=== PATIENT | male | born 1950 | race Caucasian/White ===

== ENCOUNTER → 2017-01-24 | Outpatient (REF) | payer MEDICARE, OTHER ==
[2017-01-24 16:25] LABS: ALBUMIN/GLOBULIN RATIO 1.29 (1.00-1.93); ALKALINE PHOSPHATASE 68 U/L (45-117); ALT/SGPT 34 U/L (12-78); ANION GAP 8 MEQ/L (8-16); AST/SGOT 14 U/L (15-37); BILIRUBIN,TOTAL 0.9 MG/DL (0.2-1.0); BLOOD UREA NITROGEN 19 MG/DL (7-18); CALCIUM LEVEL 8.9 MG/DL (8.8-10.2); CARBON DIOXIDE LEVEL 29 MEQ/L (21-32); CHLORIDE LEVEL 105 MEQ/L (98-107); CHOLESTEROL LEVEL 175 MG/DL (<200); CREATININE FOR GFR 1.08 MG/DL (0.70-1.30); GLOMERULAR FILTRATION RATE > 60.0 (>49); GLUCOSE, FASTING 170 MG/DL (80-110); SODIUM LEVEL 142 MEQ/L (136-145); TOTAL PROTEIN 7.1 GM/DL (6.4-8.2); TRIGLYCERIDES LEVEL 275 MG/DL (<150)
== END ==
LOC: M SFHCPLAZ 12:53
PROVIDERS: ATTEND Internal Medicine
DX: I10 Essential (primary) hypertension (principal); R16.2 Hepatomegaly with splenomegaly, not elsewhere classified; E11.9 Type 2 diabetes mellitus without complications; E78.00 Pure hypercholesterolemia, unspecified; E55.9 Vitamin D deficiency, unspecified

== ENCOUNTER → 2017-08-13 | Outpatient (CLI) | payer MEDICARE, OTHER ==
[2017-08-13 17:48] LABS: ALBUMIN 4.1 GM/DL (3.2-5.2); ALBUMIN/GLOBULIN RATIO 1.24 (1.00-1.93); ALKALINE PHOSPHATASE 67 U/L (45-117); ALT/SGPT 32 U/L (12-78); ANION GAP 6 MEQ/L (8-16); AST/SGOT 11 U/L (7-37); BILIRUBIN,TOTAL 1.2 MG/DL (0.2-1.0); BLOOD UREA NITROGEN 18 MG/DL (7-18); CALCIUM LEVEL 9.1 MG/DL (8.8-10.2); CARBON DIOXIDE LEVEL 31 MEQ/L (21-32); CHLORIDE LEVEL 103 MEQ/L (98-107); CHOLESTEROL LEVEL 188 MG/DL (<200); CREATININE FOR GFR 1.06 MG/DL (0.70-1.30); GLOMERULAR FILTRATION RATE > 60.0 (>49); GLUCOSE, FASTING 169 MG/DL (80-110); POTASSIUM SERUM 4.4 MEQ/L (3.5-5.1); SODIUM LEVEL 140 MEQ/L (136-145); TOTAL PROTEIN 7.4 GM/DL (6.4-8.2); TRIGLYCERIDES LEVEL 370 MG/DL (<150)
== END ==
LOC: M WUC 11:15
PROVIDERS: ATTEND Internal Medicine
DX: E11.9 Type 2 diabetes mellitus without complications (principal); I10 Essential (primary) hypertension

== ENCOUNTER 2017-10-14 08:23 | Day surgery (SDC) | payer MEDICARE, OTHER ==
[2017-10-14] MEDS: LR 1,000 ML IV (08:00)
[2017-10-14] MEDS ORDERED: PROPOFOL 200 MG/20 ML VIAL As Ordered ×3 (09:09→09:31)
[2017-10-14] MEDS ORDERED: LABETALOL HCL 100 MG/20 ML VIAL As Ordered (09:09)
== END 2017-10-14 10:35 | disposition home or self-care (01) ==
LOC: M OPP 08:23
DX: Z12.11 Encounter for screening for malignant neoplasm of colon (principal); K57.30 Diverticulosis of large intestine without perforation or abscess without bleeding; Z86.010 Personal history of colon polyps; I10 Essential (primary) hypertension; E78.00 Pure hypercholesterolemia, unspecified; K58.9 Irritable bowel syndrome, unspecified; M19.90 Unspecified osteoarthritis, unspecified site; F41.9 Anxiety disorder, unspecified; R06.83 Snoring; E11.9 Type 2 diabetes mellitus without complications; G47.30 Sleep apnea, unspecified; N40.0 Benign prostatic hyperplasia without lower urinary tract symptoms; Z79.84 Long term (current) use of oral hypoglycemic drugs; Z79.899 Other long term (current) drug therapy; Z88.0 Allergy status to penicillin; Z88.8 Allergy status to other drugs, medicaments and biological substances; Z99.89 Dependence on other enabling machines and devices
CPT/HCPCS: G0105

== ENCOUNTER → 2017-11-23 | Outpatient (REF) | payer MEDICARE, OTHER ==
[2017-11-23 16:11] LABS: INFLUENZA A AMPLIFICATION NEGATIVE (NEGATIVE); INFLUENZA B AMPLIFICATION NEGATIVE (NEGATIVE)
== END ==
LOC: M LAB REF 15:23
DX: J11.1 Influenza due to unidentified influenza virus with other respiratory manifestations (principal)
CPT/HCPCS: 87502

== ENCOUNTER → 2018-02-24 | Outpatient (CLI) | payer MEDICARE, OTHER ==
[2018-02-24 18:56] LABS: ALBUMIN 3.9 GM/DL (3.2-5.2); ALBUMIN/GLOBULIN RATIO 1.34 (1.00-1.93); ALKALINE PHOSPHATASE 61 U/L (45-117); ALT/SGPT 26 U/L (12-78); ANION GAP 5 MEQ/L (8-16); AST/SGOT 11 U/L (7-37); BILIRUBIN,TOTAL 0.8 MG/DL (0.2-1.0); BLOOD UREA NITROGEN 15 MG/DL (7-18); CALCIUM LEVEL 8.6 MG/DL (8.8-10.2); CARBON DIOXIDE LEVEL 30 MEQ/L (21-32); CHLORIDE LEVEL 107 MEQ/L (98-107); CHOLESTEROL LEVEL 143 MG/DL (<200); CHOLESTEROL RISK RATIO 4.468 (<5); CREATININE FOR GFR 1.01 MG/DL (0.70-1.30); GLOMERULAR FILTRATION RATE > 60.0 (>49); GLUCOSE, FASTING 173 MG/DL (70-100); HDL CHOLESTEROL 32 MG/DL (>40); LDL CHOLESTEROL 57.4 MG/DL (<100); MAGNESIUM LEVEL 2.1 MG/DL (1.8-2.4); NON-HDL-C 111 MG/DL; POTASSIUM SERUM 3.9 MEQ/L (3.5-5.1); SODIUM LEVEL 142 MEQ/L (136-145); TOTAL PROTEIN 6.8 GM/DL (6.4-8.2); TRIGLYCERIDES LEVEL 268 MG/DL (<150)
[2018-02-24 19:02] LABS: MALB URINE SIEMENS 27.3 MG/L; MAU/CREAT RATIO 25.7 MCG/MG (0.0-30.0)
[2018-02-24 19:20] LABS: ESTIMATED AVERAGE GLUCOSE 186 MG/DL (60-110); HEMOGLOBIN A1c 8.1 %
== END ==
LOC: M WUC 11:52
DX: I10 Essential (primary) hypertension (principal); E11.9 Type 2 diabetes mellitus without complications; E78.00 Pure hypercholesterolemia, unspecified; Z23 Encounter for immunization
CPT/HCPCS: 83735

== ENCOUNTER → 2018-04-03 | Outpatient (REF) | payer MEDICARE, OTHER ==
[2018-04-03 16:13] LABS: BASO % 0.1 % (0.0-1.0); HEMATOCRIT 42.8 % (42.0-52.0); HEMOGLOBIN 14.6 g/dl (13.5-17.5); IMMATURE GRANULOCYTE % 0.6 % (0-3.0); LYMPH # 1.3 10^3/uL (1.5-4.5); LYMPH % 8.7 % (24.0-44.0); MEAN CORPUSCULAR HEMOGLOBIN 30.2 pg (27.0-33.0); MEAN CORPUSCULAR HGB CONC 34.1 g/dl (32.0-36.5); MEAN CORPUSCULAR VOLUME 88.6 fl (80.0-96.0); MONO # 0.3 10^3/uL (0.0-0.8); MONO % 2.3 % (0.0-5.0); NEUTROPHILS # 13.3 10^3/uL (1.8-7.7); NEUTROPHILS % 88.3 % (36.0-66.0); PLATELET COUNT, AUTOMATED 230 10^3/uL (150-450); RED BLOOD COUNT 4.83 10^6/uL (4.30-6.10); RED CELL DISTRIBUTION WIDTH 12.7 % (11.5-14.5); WHITE BLOOD COUNT 15.1 10^3/uL (4.0-10.0)
[2018-04-03 16:20] LABS: APPEARANCE, URINE CLEAR (CLEAR); BACTERIA, URINE AUTO NEGATIVE (NEGATIVE); BILIRUBIN, URINE AUTO NEGATIVE (NEGATIVE); BLOOD, URINE BLOOD NEGATIVE (NEGATIVE); COLOR, URINE YELLOW (YELLOW); GLUCOSE, URINE (UA) AUTO 3+ mg/dL (NEGATIVE); KETONE, URINE AUTO NEGATIVE (NEGATIVE); LEUKOCYTE ESTERASE, URINE AUTO NEGATIVE (NEGATIVE); MUCUS, URINE SMALL (NEGATIVE); NITRITE, URINE AUTO NEGATIVE (NEGATIVE); PROTEIN, URINE AUTO NEGATIVE (NEGATIVE); RBC, URINE AUTO 3 /HPF (0-3); SPECIFIC GRAVITY URINE AUTO 1.021 (1.002-1.035); SQUAMOUS EPITHELIAL CELL UR AU 0 /HPF (0-6); UROBILINOGEN, URINE AUTO 0.2 mg/dL (0.0-2.0); WBC, URINE AUTO 0 /HPF (0-3)
[2018-04-03 16:24] LABS: INR 1.04; PROTHROMBIN TIME 13.7 SECONDS (12.1-14.4)
[2018-04-03 16:32] LABS: ALBUMIN 3.9 GM/DL (3.2-5.2); ALBUMIN/GLOBULIN RATIO 1.15 (1.00-1.93); ALKALINE PHOSPHATASE 76 U/L (45-117); ALT/SGPT 33 U/L (12-78); ANION GAP 8 MEQ/L (8-16); AST/SGOT 9 U/L (7-37); BILIRUBIN,TOTAL 0.8 MG/DL (0.2-1.0); BLOOD UREA NITROGEN 23 MG/DL (7-18); CALCIUM LEVEL 8.8 MG/DL (8.8-10.2); CARBON DIOXIDE LEVEL 29 MEQ/L (21-32); CHLORIDE LEVEL 105 MEQ/L (98-107); CREATININE FOR GFR 1.16 MG/DL (0.70-1.30); GLOMERULAR FILTRATION RATE > 60.0 (>49); GLUCOSE, FASTING 282 MG/DL (70-100); POTASSIUM SERUM 4.1 MEQ/L (3.5-5.1); SODIUM LEVEL 142 MEQ/L (136-145); TOTAL PROTEIN 7.3 GM/DL (6.4-8.2)
== END ==
LOC: M SFHCPLAZ 13:46
DX: R23.3 Spontaneous ecchymoses (principal)
CPT/HCPCS: 80053

== ENCOUNTER → 2018-04-07 | Outpatient (REF) | payer MEDICARE, OTHER ==
[2018-04-07 10:44] LABS: BASO % 0.3 % (0.0-1.0); EOS # 0.2 10^3/uL (0.0-0.50); EOS % 2.7 % (0.0-3.0); HEMATOCRIT 42.4 % (42.0-52.0); HEMOGLOBIN 14.4 g/dl (13.5-17.5); IMMATURE GRANULOCYTE % 0.3 % (0-3.0); LYMPH % 21.7 % (24.0-44.0); MEAN CORPUSCULAR HEMOGLOBIN 30.3 pg (27.0-33.0); MEAN CORPUSCULAR VOLUME 89.3 fl (80.0-96.0); MONO # 0.5 10^3/uL (0.0-0.8); MONO % 5.1 % (0.0-5.0); NEUTROPHILS # 6.3 10^3/uL (1.8-7.7); NEUTROPHILS % 69.9 % (36.0-66.0); PLATELET COUNT, AUTOMATED 203 10^3/uL (150-450); RED BLOOD COUNT 4.75 10^6/uL (4.30-6.10); RED CELL DISTRIBUTION WIDTH 12.8 % (11.5-14.5)
== END ==
LOC: M SFHCPLAZ 09:06
DX: R23.3 Spontaneous ecchymoses (principal)
CPT/HCPCS: 85025

== ENCOUNTER → 2018-08-31 | Outpatient (CLI) | payer MEDICARE, OTHER ==
[2018-08-31 14:08] LABS: BASO # 0.1 10^3/uL (0.0-0.2); BASO % 0.8 % (0.0-1.0); EOS # 0.2 10^3/uL (0.0-0.50); EOS % 2.5 % (0.0-3.0); HEMATOCRIT 41.3 % (42.0-52.0); HEMOGLOBIN 14.1 g/dl (13.5-17.5); IMMATURE GRANULOCYTE % 0.2 % (0-3.0); LYMPH # 2.1 10^3/uL (1.5-4.5); LYMPH % 23.2 % (24.0-44.0); MEAN CORPUSCULAR HEMOGLOBIN 30.1 pg (27.0-33.0); MEAN CORPUSCULAR HGB CONC 34.1 g/dl (32.0-36.5); MEAN CORPUSCULAR VOLUME 88.2 fl (80.0-96.0); MONO # 0.5 10^3/uL (0.0-0.8); MONO % 5.6 % (0.0-5.0); NEUTROPHILS # 6.2 10^3/uL (1.8-7.7); NEUTROPHILS % 67.7 % (36.0-66.0); PLATELET COUNT, AUTOMATED 253 10^3/uL (150-450); RED BLOOD COUNT 4.68 10^6/uL (4.30-6.10); RED CELL DISTRIBUTION WIDTH 12.4 % (11.5-14.5); WHITE BLOOD COUNT 9.2 10^3/uL (4.0-10.0)
== END ==
LOC: M WUC 11:06
DX: R23.3 Spontaneous ecchymoses (principal)
CPT/HCPCS: 85025

== ENCOUNTER → 2018-09-03 | Outpatient (CLI) | payer MEDICARE, OTHER ==
[2018-09-03 09:57] LABS: ALBUMIN 3.9 GM/DL (3.2-5.2); ALKALINE PHOSPHATASE 64 U/L (45-117); ALT/SGPT 25 U/L (12-78); ANION GAP 7 MEQ/L (8-16); AST/SGOT 10 U/L (7-37); BILIRUBIN,TOTAL 0.6 MG/DL (0.2-1.0); BLOOD UREA NITROGEN 26 MG/DL (7-18); CARBON DIOXIDE LEVEL 29 MEQ/L (21-32); CHLORIDE LEVEL 105 MEQ/L (98-107); CHOLESTEROL LEVEL 114 MG/DL (<200); CREATININE FOR GFR 1.08 MG/DL (0.70-1.30); GLOMERULAR FILTRATION RATE > 60.0 (>49); GLUCOSE, FASTING 169 MG/DL (70-100); HDL CHOLESTEROL 38 MG/DL (>40); LDL CHOLESTEROL 55 MG/DL (<100); NON-HDL-C 76 MG/DL; POTASSIUM SERUM 4.1 MEQ/L (3.5-5.1); SODIUM LEVEL 141 MEQ/L (136-145); TOTAL PROTEIN 6.9 GM/DL (6.4-8.2); TRIGLYCERIDES LEVEL 103 MG/DL (<150)
[2018-09-03 10:04] LABS: ESTIMATED AVERAGE GLUCOSE 154 MG/DL (60-110)
== END ==
LOC: M WUC 08:10
DX: E11.9 Type 2 diabetes mellitus without complications (principal); E78.00 Pure hypercholesterolemia, unspecified
CPT/HCPCS: 80053

== ENCOUNTER → 2018-11-27 | Outpatient (CLI) | payer MEDICARE, OTHER ==
[~2018-11-27] MED LIST: AMLO5TAB6 PO; CARV25TA PO; GARL10004 PO; GREE315C PO; LISI10TA2 PO; METF750T PO; OMEG100011 PO; OSTETAB4 PO; POTA20TA6 PO; TAMSULOSIN PO; TRIA1CR EXT; VITA200016 PO; VITATAB11 PO
--- NOTE | 2018-11-27 11:26 | REP ---
MRI right shoulder without contrast: History: Synovitis and tenosynovitis. Comparison right shoulder radiographs September 14, 2018. Technique: Axial, oblique coronal and oblique sagittal imaging planes are utilized. T1 and T2-weighted scans were obtained with and without fat saturation in the usual fashion. MRI findings: Cortical and medullary bone signal intensity are normal. Glenohumeral and acromioclavicular joint alignment is normal. There is some osteoarthritic hypertrophy at the AC joint superiorly and inferiorly. There is subacromial subdeltoid bursal fluid which is somewhat heterogeneous. This is moderate in size. There is also a moderate size inferolateral spur on the edge of the acromion process. Subcortical cyst formation is seen in proximal humerus. There is a small glenohumeral joint effusion and there is joint fluid and irregular synovial hypertrophy anterior to the biceps tendon and anterolateral to the humeral head consistent with bursitis and/or synovitis. The subscapularis and infraspinatus tendons appear intact. The biceps tendon is in the bony bicipital groove. There is some increased signal intensity in its genu consistent with biceps tendinosis. Axial T2-weighted scans show evidence of a nondisplaced anterior labral tear. No para labral cyst is seen. No loose body is appreciated. There is supraspinatus tendinosis as well. No full-thickness cuff tear is seen. Impression: AC joint and acromion process spurring. Supraspinatus and biceps tendinosis. Some subscapularis tendinosis is also noted. There is a nondisplaced tear in the anterior labral cartilage. Synovial hypertrophy is seen in the subdeltoid bursa and probably involving the synovia in the biceps tendon and glenohumeral articulation as well. There is a moderate subdeltoid bursal effusion. Electronically Signed by Alan Williamson MD 11/27/2018 02:41 P
== END ==
LOC: M RAD 08:42
PROVIDERS: ATTEND Orthopaedic Surgery Sports Medicine
DX: M65.811 Other synovitis and tenosynovitis, right shoulder (principal); M25.711 Osteophyte, right shoulder; M67.28 Synovial hypertrophy, not elsewhere classified, other site; S43.431A Superior glenoid labrum lesion of right shoulder, initial encounter; Y99.9 Unspecified external cause status; Y92.9 Unspecified place or not applicable; Y93.9 Activity, unspecified; X58.XXXA Exposure to other specified factors, initial encounter

== ENCOUNTER → 2019-05-03 | Outpatient (CLI) | payer MEDICARE, OTHER ==
[~2019-05-03] MED LIST changes: +LISI10TA15 PO; -LISI10TA2 PO; +TRIA0.1C60 EXT; -TRIA1CR EXT
[2019-05-03 17:29] LABS: ALBUMIN 3.8 GM/DL (3.2-5.2); ALT/SGPT 27 U/L (12-78); BILIRUBIN,TOTAL 0.6 MG/DL (0.2-1.0); BLOOD UREA NITROGEN 19 MG/DL (7-18); CALCIUM LEVEL 9.2 MG/DL (8.8-10.2); CARBON DIOXIDE LEVEL 29 MEQ/L (21-32); CHLORIDE LEVEL 108 MEQ/L (98-107); CHOLESTEROL LEVEL 110 MG/DL (<200); CHOLESTEROL RISK RATIO 2.972 (<5); CREATININE FOR GFR 1.08 MG/DL (0.70-1.30); GLOMERULAR FILTRATION RATE > 60.0 (>49); GLUCOSE, FASTING 162 MG/DL (70-100); HDL CHOLESTEROL 37 MG/DL (>40); LDL CHOLESTEROL 35 MG/DL (<100); MAGNESIUM LEVEL 2.1 MG/DL (1.8-2.4); NON-HDL-C 73 MG/DL; POTASSIUM SERUM 4.2 MEQ/L (3.5-5.1); SODIUM LEVEL 143 MEQ/L (136-145); TOTAL PROTEIN 6.8 GM/DL (6.4-8.2); TRIGLYCERIDES LEVEL 189 MG/DL (<150)
[2019-05-03 17:42] LABS: MALB URINE SIEMENS 18.5 MG/L; MAU/CREAT RATIO 10.6 MCG/MG (0.0-30.0)
[2019-05-03 18:15] LABS: HEMOGLOBIN A1c 8.1 %
== END ==
LOC: M WUC 11:34
PROVIDERS: ATTEND Internal Medicine
DX: I10 Essential (primary) hypertension (principal); E11.9 Type 2 diabetes mellitus without complications; E78.00 Pure hypercholesterolemia, unspecified

== ENCOUNTER → 2019-10-05 | Outpatient (CLI) | payer MEDICARE, OTHER ==
[~2019-10-05] MED LIST changes: -METF750T PO; +METF750T36 PO
[2019-10-05 18:00] LABS: ALT/SGPT 25 U/L (12-78); BILIRUBIN,TOTAL 0.9 MG/DL (0.2-1.0); BLOOD UREA NITROGEN 16 MG/DL (7-18); CALCIUM LEVEL 9.1 MG/DL (8.8-10.2); CARBON DIOXIDE LEVEL 28 MEQ/L (21-32); CHLORIDE LEVEL 108 MEQ/L (98-107); CREATININE FOR GFR 1.01 MG/DL (0.70-1.30); GLOMERULAR FILTRATION RATE > 60.0 (>49); GLUCOSE, FASTING 149 MG/DL (70-100); MAGNESIUM LEVEL 2.4 MG/DL (1.8-2.4); SODIUM LEVEL 143 MEQ/L (136-145); TOTAL PROTEIN 6.6 GM/DL (6.4-8.2)
[2019-10-05 18:38] LABS: HEMOGLOBIN A1c 7.1 %
== END ==
LOC: M WUC 11:15
PROVIDERS: ATTEND Internal Medicine
DX: E11.9 Type 2 diabetes mellitus without complications (principal); I10 Essential (primary) hypertension

== ENCOUNTER → 2020-04-10 | Outpatient (CLI) | payer MEDICARE, OTHER ==
[~2020-04-10] MED LIST changes: +AMLO1TAB24 PO; -AMLO5TAB6 PO
[2020-04-10 13:40] LABS: HEMATOCRIT 45.2 % (42.0-52.0); HEMOGLOBIN 15.1 g/dl (13.5-17.5); MEAN CORPUSCULAR HEMOGLOBIN 29.6 pg (27.0-33.0); MEAN CORPUSCULAR HGB CONC 33.4 g/dl (32.0-36.5); MEAN CORPUSCULAR VOLUME 88.6 fl (80.0-96.0); PLATELET COUNT, AUTOMATED 193 10^3/uL (150-450); WHITE BLOOD COUNT 7.5 10^3/uL (4.0-10.0)
[2020-04-10 14:07] LABS: ALT/SGPT 24 U/L (12-78); BLOOD UREA NITROGEN 21 MG/DL (7-18); CALCIUM LEVEL 8.8 MG/DL (8.8-10.2); CARBON DIOXIDE LEVEL 25 MEQ/L (21-32); CHLORIDE LEVEL 109 MEQ/L (98-107); CHOLESTEROL LEVEL 123 MG/DL (<200); CHOLESTEROL RISK RATIO 3.617 (<5); CREATININE FOR GFR 1.03 MG/DL (0.70-1.30); GLOMERULAR FILTRATION RATE > 60.0 (>49); GLUCOSE, FASTING 132 MG/DL (70-100); HDL CHOLESTEROL 34 MG/DL (>40); LDL CHOLESTEROL 47 MG/DL (<100); MAGNESIUM LEVEL 2.3 MG/DL (1.8-2.4); NON-HDL-C 89 MG/DL; POTASSIUM SERUM 3.8 MEQ/L (3.5-5.1); SODIUM LEVEL 141 MEQ/L (136-145); TRIGLYCERIDES LEVEL 212 MG/DL (<150)
[2020-04-10 16:10] LABS: HEMOGLOBIN A1c 7.1 %
== END ==
LOC: M WUC 11:56
PROVIDERS: ATTEND Internal Medicine
DX: E11.3293 Type 2 diabetes mellitus with mild nonproliferative diabetic retinopathy without macular edema, bilateral (principal); E78.00 Pure hypercholesterolemia, unspecified; G47.30 Sleep apnea, unspecified; I10 Essential (primary) hypertension; Z12.5 Encounter for screening for malignant neoplasm of prostate
CPT/HCPCS: 36415; 80053; 80061; 83036; 83735; 85027; G0103

== ENCOUNTER → 2020-04-28 | Outpatient (REF) | payer MEDICARE, OTHER | LOC: M SMT 14:01 | PROVIDERS: ATTEND Nurse Practitioner Family | DX: R97.20 Elevated prostate specific antigen [PSA] (principal); N39.0 Urinary tract infection, site not specified ==

== ENCOUNTER → 2020-05-09 | Outpatient (REF) | payer MEDICARE, OTHER ==
--- NOTE | 2020-06-26 10:43 | REPPI ---
TRANRECTAL PROSTATE SONOGRAPHY HISTORY: Elevated PSA. NOTE: This report was delayed due to a protracted episode of network disruption experienced by this facility. FINDINGS: Glandular dimensions are 5.0 x 3.5 x 5.1 cm for a calculated glandular volume of 46 mL. Heterogeneous enlargement of the central gland is observed with calcifications and cysts. Transrectal prostate sonographic guidance is provided to Dr. Estrada who performed transrectal ultrasound-guided prostate needle biopsy procedure. NAOMI
== END ==
LOC: M SMT 12:18
PROVIDERS: ATTEND Urology
DX: R97.20 Elevated prostate specific antigen [PSA] (principal)
CPT/HCPCS: 55700; 76872; 76942; G0416

== ENCOUNTER → 2020-09-19 | Outpatient (CLI) | payer MEDICARE, OTHER ==
[2020-09-19 15:18] LABS: APPEARANCE, URINE CLOUDY (CLEAR); BACTERIA, URINE AUTO 1+ (NEGATIVE); BILIRUBIN, URINE AUTO NEGATIVE (NEGATIVE); BLOOD, URINE BLOOD 1+ (NEGATIVE); COLOR, URINE YELLOW (YELLOW); GLUCOSE, URINE (UA) AUTO 3+ mg/dL (NEGATIVE); KETONE, URINE AUTO NEGATIVE (NEGATIVE); LEUKOCYTE ESTERASE, URINE AUTO 3+ (NEGATIVE); NITRITE, URINE AUTO POSITIVE (NEGATIVE); PROTEIN, URINE AUTO 1+ mg/dL (NEGATIVE); RBC, URINE AUTO 22 /HPF (0-3); SPECIFIC GRAVITY URINE AUTO 1.036 (1.002-1.035); SQUAMOUS EPITHELIAL CELL UR AU 0 /HPF (0-6); UROBILINOGEN, URINE AUTO 0.2 mg/dL (0.0-2.0); WBC, URINE AUTO TNTC /HPF (0-3)
== END ==
LOC: M LAB 14:23
PROVIDERS: ATTEND Urology
DX: R39.15 Urgency of urination (principal)

== ENCOUNTER → 2020-09-25 | Outpatient (CLI) | payer MEDICARE, OTHER | LOC: M LAB 10:49 | PROVIDERS: ATTEND Urology | DX: C61 Malignant neoplasm of prostate (principal) ==

== ENCOUNTER → 2020-10-12 | Outpatient (CLI) | payer MEDICARE, OTHER ==
[2020-10-12 14:02] LABS: MALB URINE SIEMENS 58.8 MG/L; MAU/CREAT RATIO 40.5 MCG/MG (0.0-30.0)
[2020-10-12 14:03] LABS: ALBUMIN 3.8 GM/DL (3.2-5.2); ALT/SGPT 33 U/L (12-78); BILIRUBIN,TOTAL 0.5 MG/DL (0.2-1.0); BLOOD UREA NITROGEN 23 MG/DL (7-18); CARBON DIOXIDE LEVEL 26 MEQ/L (21-32); CHLORIDE LEVEL 106 MEQ/L (98-107); CHOLESTEROL LEVEL 125 MG/DL (<200); CHOLESTEROL RISK RATIO 3.048 (<5); CREATININE FOR GFR 0.95 MG/DL (0.70-1.30); GLOMERULAR FILTRATION RATE > 60.0 (>49); GLUCOSE, FASTING 170 MG/DL (70-100); HDL CHOLESTEROL 41 MG/DL (>40); LDL CHOLESTEROL 50 MG/DL (<100); NON-HDL-C 84 MG/DL; POTASSIUM SERUM 4.1 MEQ/L (3.5-5.1); SODIUM LEVEL 138 MEQ/L (136-145); TOTAL PROTEIN 6.9 GM/DL (6.4-8.2); TRIGLYCERIDES LEVEL 172 MG/DL (<150)
[2020-10-12 14:13] LABS: HEMOGLOBIN A1c 7.3 %
== END ==
LOC: M LAB 11:45
PROVIDERS: ATTEND Internal Medicine
DX: E11.3219 Type 2 diabetes mellitus with mild nonproliferative diabetic retinopathy with macular edema, unspecified eye (principal); Z79.899 Other long term (current) drug therapy

== ENCOUNTER → 2020-10-26 | Outpatient (CLI) | payer MEDICARE, OTHER ==
[2020-10-26 16:36] LABS: APPEARANCE, URINE MANUAL CLOUDY (CLEAR); COLOR, URINE MANUAL AMBER (YELLOW); GLUCOSE, URINE (UA) MANUAL OBSCURED mg/dL (NEGATIVE); PROTEIN, URINE MANUAL OBSCURED mg/dL (NEGATIVE); SPECIFIC GRAVITY,URINE MANUAL 1.025 (1.002-1.035)
[2020-10-26 16:37] LABS: BACTERIA, URINE LARGE AMOUNT; BILIRUBIN, URINE MANUAL OBSCURED (NEGATIVE); BLOOD URINE MANUAL POSITIVE (NEGATIVE); KETONE, URINE MANUAL OBSCURED mg/dL (NEGATIVE); LEUKOCYTE ESTERASE, URINE MAN OBSCURED (NEGATIVE); NITRITE, URINE MANUAL OBSCURED (NEGATIVE); RBC, URINE NONE SEEN /hpf (0-3); SQUAMOUS EPITHELIAL CELL URINE NONE SEEN /hpf (SMALL AMT); UROBILINOGEN, URINE MANUAL OBSCURED mg/dl (NORMAL); WBC, URINE 15-20 /hpf (0-3)
[2020-10-26 16:38] LABS: HYALINE CAST, URINE NONE SEEN /lpf (0-1); YEAST, URINE LARGE AMOUNT
== END ==
LOC: M LAB 15:41
PROVIDERS: ATTEND Urology
DX: R39.9 Unspecified symptoms and signs involving the genitourinary system (principal)

== ENCOUNTER → 2020-11-06 | Outpatient (CLI) | payer MEDICARE, OTHER ==
[2020-11-06 14:37] LABS: APPEARANCE, URINE CLOUDY (CLEAR); BACTERIA, URINE AUTO NEGATIVE (NEGATIVE); BILIRUBIN, URINE AUTO NEGATIVE (NEGATIVE); BLOOD, URINE BLOOD NEGATIVE (NEGATIVE); COLOR, URINE YELLOW (YELLOW); GLUCOSE, URINE (UA) AUTO 3+ mg/dL (NEGATIVE); KETONE, URINE AUTO NEGATIVE (NEGATIVE); LEUKOCYTE ESTERASE, URINE AUTO 3+ (NEGATIVE); MUCUS, URINE SMALL (NEGATIVE); NITRITE, URINE AUTO NEGATIVE (NEGATIVE); PROTEIN, URINE AUTO 1+ mg/dL (NEGATIVE); RBC, URINE AUTO 170 /HPF (0-3); SPECIFIC GRAVITY URINE AUTO 1.031 (1.002-1.035); SQUAMOUS EPITHELIAL CELL UR AU 1 /HPF (0-6); UROBILINOGEN, URINE AUTO 0.2 mg/dL (0.0-2.0); WBC, URINE AUTO 151 /HPF (0-3)
== END ==
LOC: M LAB 13:50
PROVIDERS: ATTEND Urology
DX: R39.9 Unspecified symptoms and signs involving the genitourinary system (principal)

== ENCOUNTER → 2020-11-22 | Outpatient (CLI) | payer MEDICARE, OTHER ==
[~2020-11-22] MED LIST changes: +ASPI-161 PO; +BACITAB PO; +D200CAP2 PO; +DICL1GEL3 TOP; +DICY1CAP8 PO; +FARX1TAB5 PO; +GABA-282 PO; +GASTROGRAFIN SOLUTION 30ML (Q9963) As Ordered ONE; +ISOVUE-370 76% 100ML VIAL As Ordered ONE; +JANU100T PO; +LISI20TA35 PO; +ROSU5TAB5 PO
--- NOTE | 2020-11-22 21:05 | REP ---
INDICATION: LOWER ABD PAIN. COMPARISON: 04/28/2015 CT TECHNIQUE: Oral Gastrografin mixture per our bowel contrast protocol followed by bolus of 75 cc Isovue 370 scanning through the abdomen pelvis with coronal and sagittal reconstructions. FINDINGS: CT abdomen: Lung bases are clear there is eventration of the right diaphragm and some compressive atelectatic change right middle lobe adjacent to that but unchanged. Heart shows some left ventricular configuration. There is no pericardial thickening or effusion and no hiatal hernia. Lower thoracic and the abdominal aorta without aneurysm or dissection. Mild hepatomegaly and fatty liver change with vertical diameter the liver 20.3 cm midclavicular line. No focal hepatic mass, intrahepatic biliary dilatation or adjacent ascites. There is colonic interposition between the liver and the dome of the diaphragm as well as anterior abdominal wall. This is as seen on the previous study. No splenomegaly or focal splenic lesion. Gallbladder partially contracted some retained food in the stomach along with the oral contrast. Pancreas shows no mass, ductal dilatation or inflammatory change. No peripancreatic adenopathy or fluid collections. Adrenal glands are grossly intact. Kidneys show function without obstruction. There are extrarenal pelves. I see no stone or hydronephrosis. Subcortical cyst lateral aspect interpolar region about 5 mm on the left. No renal, ureteral or bladder stone. Ureters show mild prominence to the bladder. Small bowel loops in the upper abdomen and mid abdomen were unremarkable. The abdominal portion of the colon was unremarkable. No inflammatory change about the cecum. The bone windows show lumbar and lower thoracic spine with some degenerative changes and facet arthropathy in the lower lumbar spine without destructive lesion or fracture. Visualized ribs grossly intact. No perforation or free air in the abdomen or pelvis. No ascites. CT pelvis: Bone windows show facet arthropathy at L5-S1 some minor sclerosis at the superior aspect of the right SI joint but the sacral ala, iliac wings and hips show no fracture or destructive lesion. There are some minor degenerative changes of the hips. Distal left colon and sigmoid show a few scattered diverticula without diverticulitis or colitis. Rectum grossly intact. Distal ureters without stone but are mildly prominent. There is thickening of the bladder wall diffusely, not present in the previous study. Prostate is indenting the bladder base. No bladder wall mass or bladder stones/debris. No pelvic lymphadenopathy or free fluid. No ventral or inguinal hernia nor pathologic sized inguinal adenopathy. No umbilical hernia. IMPRESSION: 1. Mild hydroureter and extrarenal pelves with diffuse bladder wall thickening the bladder at adequately distended. This may reflect muscular hypertrophy from bladder outlet obstruction. No bladder stone, wall mass, layering debris or perivesical fluid/edema/adenopathy. 2. Hepatomegaly with some probable fatty infiltration the liver. There is colonic interposition between the liver, right abdominal wall and dome of the diaphragm as before and representing anatomic variation. Spleen unremarkable. Adrenal glands gallbladder and pancreas without acute finding. No hiatal hernia. 3. No renal stone or mass. 5 mm cyst laterally in the left kidney. 4. Scattered diverticula left colon and sigmoid without diverticulitis or colitis. <Electronically signed by Zia Mckeon > 11/22/20 [id number]
== END ==
LOC: M RAD 16:43
PROVIDERS: ATTEND Internal Medicine
DX: R10.30 Lower abdominal pain, unspecified (principal); R16.0 Hepatomegaly, not elsewhere classified; K76.0 Fatty (change of) liver, not elsewhere classified; N28.1 Cyst of kidney, acquired; K57.30 Diverticulosis of large intestine without perforation or abscess without bleeding
CPT/HCPCS: 74177; Q9963; Q9967

== ENCOUNTER 2020-11-27 18:07 | Day surgery (SDC) | payer MEDICARE, OTHER ==
[~2020-11-27] VITALS: Ht 170.2 cm; Wt 76.3 kg
[~2020-11-27 18:07] MED LIST changes: -ASPI-161 PO; -BACITAB PO; -D200CAP2 PO; -DICL1GEL3 TOP; -DICY1CAP8 PO; -FARX1TAB5 PO; -GABA-282 PO; -GASTROGRAFIN SOLUTION 30ML (Q9963) As Ordered ONE; -ISOVUE-370 76% 100ML VIAL As Ordered ONE; -JANU100T PO; -LISI20TA35 PO; -ROSU5TAB5 PO
[2020-11-27 21:29] LABS: BASO # 0.1 10^3/uL (0.0-0.2); BASO % 0.5 % (0.0-1.0); EOS # 0.1 10^3/uL (0.0-0.5); EOS % 1.1 % (0.0-3.0); HEMATOCRIT 50.1 % (42.0-52.0); HEMOGLOBIN 16.4 g/dl (13.5-17.5); LYMPH # 3.4 10^3/uL (1.5-5.0); LYMPH % 26.8 % (24.0-44.0); MEAN CORPUSCULAR HEMOGLOBIN 27.8 pg (27.0-33.0); MEAN CORPUSCULAR HGB CONC 32.7 g/dl (32.0-36.5); MEAN CORPUSCULAR VOLUME 84.9 fl (80.0-96.0); MONO # 0.6 10^3/uL (0.0-0.8); MONO % 4.5 % (2.0-8.0); NEUTROPHILS # 8.4 10^3/uL (1.5-8.5); NEUTROPHILS % 66.8 % (36.0-66.0); PLATELET COUNT, AUTOMATED 325 10^3/uL (150-450); WHITE BLOOD COUNT 12.5 10^3/uL (4.0-10.0)
[2020-11-27 21:39] LABS: PROTHROMBIN TIME 13.4 SECONDS (12.5-14.3)
[2020-11-27 21:40] LABS: PARTIAL THROMBOPLASTIN TIME 29.4 SECONDS (24.2-38.5)
[2020-11-27] MEDS: MORPHINE 2 MG/ML 1ML VIAL (J2270) IV PRN ×3 (22:05→22:45)
[2020-11-27 22:06] LABS: ALBUMIN 4.3 GM/DL (3.2-5.2); ALT/SGPT 76 U/L (12-78); BILIRUBIN,DIRECT 0.2 MG/DL (0.0-0.2); BILIRUBIN,TOTAL 0.7 MG/DL (0.2-1.0); BLOOD UREA NITROGEN 9 MG/DL (7-18); CALCIUM LEVEL 9.2 MG/DL (8.8-10.2); CARBON DIOXIDE LEVEL 25 MEQ/L (21-32); CHLORIDE LEVEL 107 MEQ/L (98-107); CREATININE FOR GFR 1.09 MG/DL (0.70-1.30); GLOMERULAR FILTRATION RATE > 60.0 (>49); GLUCOSE, FASTING 149 MG/DL (70-100); LIPASE 85 U/L (73-393); POTASSIUM SERUM 3.6 MEQ/L (3.5-5.1); SODIUM LEVEL 142 MEQ/L (136-145); TOTAL PROTEIN 7.9 GM/DL (6.4-8.2)
[2020-11-27] MEDS ORDERED: ISOVUE-370 76% 100ML VIAL As Ordered ONE (22:10)
--- NOTE | 2020-11-27 22:53 | REPVR ---
PROCEDURE INFORMATION: Exam: CT Abdomen And Pelvis With Contrast Exam date and time: 11/27/2020 10:30 PM Age: 70 years old Clinical indication: Abdominal pain; Localized; Right lower quadrant (rlq); Additional info: Right lower quadrant pain TECHNIQUE: Imaging protocol: Computed tomography of the abdomen and pelvis with contrast. Radiation optimization: All CT scans at this facility use at least one of these dose optimization techniques: automated exposure control; mA and/or kV adjustment per patient size (includes targeted exams where dose is matched to clinical indication); or iterative reconstruction. Contrast material: ISOVUE 370; Contrast volume: 100 ml; Contrast route: INTRAVENOUS (IV); COMPARISON: CT ABD/PEL W/IV ORAL CONTRAS 11/22/2020 6:40 PM FINDINGS: Lungs: No suspicious mass or airspace process in the visualized lung bases. Liver: Liver appears normal with no focal abnormality. Gallbladder and bile ducts: Gallbladder is contracted and not well evaluated. Pancreas: Pancreas appears normal. No focal mass or peripancreatic inflammation. Spleen: Spleen appears homogeneous without focal mass. Adrenal glands: Adrenal glands are normal in appearance. Kidneys and ureters: Kidneys demonstrate no stone or focal parenchymal abnormality. Mild bilateral hydroureteronephrosis without ureter stone. Stomach and bowel: No concerning asymmetry or abnormality at the GE junction. No evidence of small bowel obstruction. Terminal ileum has normal appearance. Diverticular changes are present within the colon without inflammation. Appendix: Normal caliber appendix is identified, with no adjacent inflammation. Intraperitoneal space: No pneumoperitoneum. Vasculature: No aortic aneurysm. Main portal and splenic veins enhance normally. Lymph nodes: No enlarged lymph nodes. Urinary bladder: Bladder is somewhat thick-walled with perivesicular stranding and prominent mucosal enhancement. No nodule or mass. Reproductive: No overt enlargement of the prostate gland. Bones/joints: Bony structures show no acute fracture or destructive process. Soft tissues: No effacement of normal fat planes in the ischiorectal fossa. No concerning focal abnormality of the extra-abdominal and pelvic soft tissues. IMPRESSION: 1. No evidence of appendicitis or terminal ileitis. No bowel abnormality of significance. 2. Bilateral mild hydroureteronephrosis without an identifiable ureter stone. Appearance of the bladder suggests underlying chronic intermittent bladder outlet obstruction or possibly cystitis. Correlation with urinary labs recommended. Electronically signed by: Delgado Faustin On 11/27/2020 22:54:12 PM
[2020-11-28] VITALS (7 sets, daily range): BP systolic 130–148; BP diastolic 69–84
[2020-11-28] MEDS ORDERED: MORPHINE 2 MG/ML 1ML VIAL (J2270) IV PRN (00:05)
[2020-11-28] MEDS ORDERED: fentaNYL 100 MCG/2 ML INJECTION (J3010) As Ordered ONE (00:24)
[2020-11-28] MEDS ORDERED: LIDOCAINE 2% 100MG/5ML SDV (FOR ANES.) As Ordered ONE (00:24)
[2020-11-28] MEDS ORDERED: MIDAZOLAM INJ 2MG/2ML VIAL (J2250 PER 1MG) As Ordered ONE (00:24)
[2020-11-28] MEDS ORDERED: propofoL 200 MG/20 ML VIAL As Ordered ONE (00:24)
--- NOTE | 2020-11-28 00:43 | SMCUROLCON ---
Urology Consultation General Date of Consultation 11/27/20 Reason For Consultation This patient is seen for Urethral Structures and urinary retention History of Present Illness The patient is a 70-year-old male with a past medical history for prostate cancer and laparoscopic radical prostatectomy in June 2020. The surgery was done in [place]. Postoperatively the patient had difficulty voiding and was on a self cath regimen. He was then instructed to catheterize only the first 2 inches of the urethra and he also stopped this sometime ago. He subsequently developed progressive slowing of his urinary stream to the point where for the last several days he could not urinate at all. He states that he was able to self cath with a 14 Yemeni catheter 2 days ago but nothing since then. He presents to the emergency room today with severe abdominal pain and a bladder ultrasound showed 1400 mL in the bladder. Nurses in the emergency room tried to catheterize him several times unsuccessfully and urology consult was called. I also tried to cath him with a 12 Yemeni catheter found that he had a very tigh t stricture of the fossa navicularis and urethral meatus. He was then dilated with filiforms and followers but even then I could not get a catheter in. I was able to get some urine from the bladder with the follower. I finally decided patient comes to the operating room for a catheter insertion since interventional radiology is not available for suprapubic catheter. Past Medical History Medical History Diabetes Hypertension Cataracts Enlarged left ventricle Prostate cancer Surgical Hstory Laparoscopic assisted radical prostatectomy June 2020 Inguinal hernia repair Appendectomy Cataract Social History * Smoker: non-smoker Alcohol: Denies Drugs: denies Medications Current Medications Current Medications Medications (Trade) Dose Ordered Sig/Ambreen Route PRN Reason Start Time Stop Time Status Last Admin Dose Admin Morphine Sulfate (Morphine Sulfate Inj) 2 mg Q30M PRN IV MODERATE PAIN (PS 5-7) 11/27/20 22:05 11/27/20 22:46 DC 11/27/20 22:45 Morphine Sulfate (Morphine Sulfate Inj) 2 mg Q30M PRN IV MODERATE PAIN (PS 5-7) 11/28/20 00:05 Allergies Allergies: Coded Allergies: Penicillins (Verified Allergy, Intermediate, rash , 11/27/20) erythromycin base (Verified Allergy, Intermediate, hives, 11/27/20) procaine (Verified Adverse Reaction, Unknown, 11/27/20) Review of Systems General: Reports: Normal Appetite, Other Symptoms; Denies: Fatigue, Malaise Constitutional: Denies: Fever, Chills, Sweats, Weakness, Malaise Eyes: Denies: Pain, Vision change ENT: Denies: Head Aches, Sore Throat, Epistaxis Skin: Denies: Rash, Lesions, Breakdown, Nail Changes Pulmonary: Denies: Dyspnea, Cough Cardiovascular: Denies Chest Pain, Denies Palpitations Gastrointestinal: Denies: Nausea, Vomiting, Abdominal Pain Genitourinary: Reports: Frequency, Retention; Denies: Dysuria, Incontinence, Hematuria Endocrine: Denies: Polydipsia, Polyphagia, Polyuria Musculoskeletal: Denies: Neck Pain, Back Pain Neurological: Denies: Weakness, Numbness, Incoordination, Change in Speech Psych: Reports: Mood Normal; Denies: Anxiety, Depression Physical Examination General Exam: Moderate Distress EYE EXAM: PERRLA, Conjunctiva & lids normal, EOMI; No: Sclera icteric ENT EXAM: Atraumatic, Mucous membr. moist/pink, Pharynx Normal Neck Exam: Supple; No: JVD, thyromegaly Chest Exam: Clear to auscultation, Normal air movement Heart Exam: Rate Normal, Regular Rhythm, Normal S1, Normal S2; No: Murmurs, Rubs Abdomen Exam: BS Hypoactive, Tenderness, Other (distended bladder above the umbilicus) Extremity Exam: Normal Pulses; No: Clubbing, Cyanosis, Edema Skin Exam: Nl turgor and temperature; No: Rash, Breakdown Neuro Exam: Normal Gait, Normal Speech, Cranial Nerves 3-12 NL, Reflexes 2+ Psych Exam: Mental status NL, Mood NL, Oriented x 3 Vital Signs/I&O Vital Signs Date Time Temp Pulse Resp B/P (MAP) Pulse Ox O2 Delivery O2 Flow Rate FiO2 11/27/20 22:45 115 20 141/83 (102) 94 11/27/20 18:17 97.5 Room Air Laboratory Data 24H Labs Laboratory Tests 2 11/27/20 18:07: Urine Color YELLOW, Urine Appearance CLOUDYH, Urine pH 5.0, Urine Specific Durb[place] 1.010, Urine Protein 1+H, Urine Glucose (UA) 3+H, Urine Ketones NEGATIVE, Urine Blood 1+H, Urine Nitrite NEGATIVE, Urine Bilirubin NEGATIVE, Urine Urobilinogen 0.2, Urine Leukocyte Esterase 3+H, Urine WBC (Auto) TNTCH, Urine RBC (Auto) 41H, Urine Hyaline Casts (Auto) 0, Urine Bacteria (Auto) NEGATIVE, Urine Squamous Epithelial Cells 0, Urine Yeast-Like Cells (Auto) LARGEH, Urine Sperm (Auto) 11/27/20 21:20: Immature Granulocyte % (Auto) 0.3, Neutrophils (%) (Auto) 66.8H, Lymphocytes (%) (Auto) 26.8, Monocytes (%) (Auto) 4.5, Eosinophils (%) (Auto) 1.1, Basophils (%) (Auto) 0.5, Neutrophils # (Auto) 8.4, Lymphocytes # (Auto) 3.4, Monocytes # (Auto) 0.6, Eosinophils # (Auto) 0.1, Basophils # (Auto) 0.1, Nucleated Red Blood Cells % (auto) 0.0, Prothrombin Time 13.4, Prothromb Time International Ratio 1.00, Activated Partial Thromboplast Time 29.4, Anion Gap 10, Glomerular Filtration Rate > 60.0, Lactic Acid Level 1.6, Calcium Level 9.2, Total Bilirubin 0.7, Direct Bilirubin 0.2, Aspartate Amino Transf (AST/SGOT) 33, Alanine Aminotransferase (ALT/SGPT) 76, Alkaline Phosphatase 86, Total Protein 7.9, Albumin 4.3, Albumin/Globulin Ratio 1.2, Lipase 85 11/27/20 23:47: CBC/BMP Laboratory Tests 11/27/20 21:20 Microbiology Microbiology 11/27/20 Blood Culture, Received Pending 11/27/20 Blood Culture, Received Pending 11/27/20 Urine Culture, Received Pending Assessment Urinary retention with strictures of the urethral meatus, fossa navicularis and possibly bulbous urethra and bladder neck Plan Since I could not pass a catheter in the emergency room, the patient was brought to the operating room for stent insertion, cystoscopy, possible urethral dilation or urethral stricture incision. Time Spent on Consult: Time Spent / Consult (Minutes): 120 LUC LAUGHLIN MD Nov 28, 2020 00:43
[2020-11-28] MEDS ORDERED: LIDOCAINE 2% 5ML JELLY UROJET As Ordered ONE (00:46)
[2020-11-28 00:59] LABS: RSV AMPLIFICATION NEGATIVE (NEGATIVE)
[2020-11-28] MEDS ORDERED: fentaNYL 100 MCG/2 ML INJECTION (J3010) IV PRN (01:30)
[2020-11-28] MEDS ORDERED: oxyCODONE 5MG TAB PO PRN (01:30)
[2020-11-28] MEDS ORDERED: LR 1,000 ML IV SCH ×2 (01:30→01:55)
[2020-11-28] MEDS ORDERED: ONDANSETRON 4MG/2ML VIAL IV PRN (01:30)
[2020-11-28] MEDS ORDERED: HYDROMORPHONE HCL 0.5 MG/ 0.5 ML SYRINGE (J1170 PER 1) IV PRN (01:30)
--- NOTE | 2020-11-28 01:38 | ROOPDOC ---
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 He presented to the emergency room with retention and catheters were unable to be inserted by several people including myself. He was therefore brought to the operating room for cystoscopic assisted catheter insertion. DESCRIPTION OF PROCEDURE: The patient was placed on table in supine position and given Mac anesthesia. He was then placed in lithotomy position, prepped with Betadine paint and draped in an aseptic manner. Timeout was then performed. A 21 Irish cystoscope was then inserted into the meatus after dilating the uret hral meatus with Hines sounds to 20 Irish. The patient was found to have a stricture of the urethral meatus and fossa navicularis and the cystoscope was then advanced under direct vision to the bladder neck where he was found to have a very tight contracture and a lot of irritation. I was able to pass a wire through a very small bladder neck opening and the scope was removed. Dilators were then passed over the wire to 22 Irish at which the passage was very tight. This was then removed and a 16 Irish Habematolel catheter was passed over the wire and the balloon was inflated in the bladder to 10 mL. The patient drained 400 mL and the bladder was then irrigated with a Shadi syringe. The catheter was then connected to closed drainage, patient was awakened and sent to recovery room in stable condition having tolerated the procedure well. PRIYANK BOLAND MD Nov 28, 2020 01:38
[2020-11-28] MEDS ORDERED: ACETAMINOPHEN TAB 650MG DOSE (2X325MG) PO PRN (01:55)
[2020-11-28] MEDS ORDERED: NORCO, ANEXSIA 5/325MG TABLET (HYDROcodone/ACETAMINOPHEN) PO PRN (02:00)
[2020-11-28] MEDS ORDERED: D200CAP2 PO (03:03)
[2020-11-28] MEDS ORDERED: FARX1TAB5 PO (03:13)
[2020-11-28] MEDS ORDERED: GABA-282 PO (03:13)
[2020-11-28] MEDS ORDERED: DICL1GEL3 TOP (03:13)
[2020-11-28] MEDS ORDERED: ROSU5TAB5 PO (03:13)
[2020-11-28] MEDS ORDERED: BACITAB PO (03:13)
[2020-11-28] MEDS ORDERED: ASPI-161 PO (03:13)
[2020-11-28] MEDS ORDERED: JANU100T PO (03:13)
[2020-11-28] MEDS ORDERED: DICY1CAP8 PO (03:13)
[2020-11-28] MEDS ORDERED: LISI20TA35 PO (03:14)
== END 2020-11-28 14:31 | disposition home or self-care (01) ==
LOC: M ED 18:07 → M SDC 23:49 → M MSPAV 11-28 02:06 → M SDC 11-28 14:31
PROVIDERS: ATTEND Urology
DX: N35.911 Unspecified urethral stricture, male, meatal (principal); I10 Essential (primary) hypertension; E11.9 Type 2 diabetes mellitus without complications; G47.30 Sleep apnea, unspecified; Z85.46 Personal history of malignant neoplasm of prostate; F41.9 Anxiety disorder, unspecified; Z79.84 Long term (current) use of oral hypoglycemic drugs; Z79.899 Other long term (current) drug therapy; Z88.0 Allergy status to penicillin; Z88.1 Allergy status to other antibiotic agents
CPT/HCPCS: 52281; 74177; 80048; 80076; 81001; 83605; 83690; 85025; 85610; 85730; 87040; 87086; 87631; 93041; 96374; 96376; 99285; C1769; J2250; J2270; J3010; Q9967

== ENCOUNTER 2020-12-08 04:51 | Emergency (ER) | payer MEDICARE, OTHER ==
[~2020-12-08] VITALS: Ht 170.2 cm; Wt 81.0 kg
[~2020-12-08 04:51] MED LIST changes: +ASPI-161 PO; +BACITAB PO; +D200CAP2 PO; +DICL1GEL3 TOP; +DICY1CAP8 PO; +FARX1TAB5 PO; +GABA-282 PO; +JANU100T PO; +LISI20TA35 PO; +ROSU5TAB5 PO
[2020-12-08] MEDS ORDERED: LIDOCAINE 2% 5ML JELLY UROJET TOP ONE (05:55)
[2020-12-08] MEDS ORDERED: LIDOCAINE 2% 5ML JELLY UROJET As Ordered ONE (05:56)
[2020-12-08 06:41] VITALS: BP 134/77
== END 2020-12-08 06:50 | disposition home or self-care (01) ==
LOC: M ED 04:51
DX: T83.091A Other mechanical complication of indwelling urethral catheter, initial encounter (principal); E11.9 Type 2 diabetes mellitus without complications; Z85.46 Personal history of malignant neoplasm of prostate; Z88.0 Allergy status to penicillin; Z88.8 Allergy status to other drugs, medicaments and biological substances; Z79.899 Other long term (current) drug therapy

== ENCOUNTER → 2021-02-08 | Outpatient (CLI) | payer MEDICARE, OTHER | LOC: M WUC 11:24 | PROVIDERS: ATTEND Urology | DX: C61 Malignant neoplasm of prostate (principal) ==

== ENCOUNTER 2021-05-07 22:56 | Emergency (ER) | payer MEDICARE, OTHER ==
[~2021-05-07] VITALS: Ht 170.2 cm; Wt 86.5 kg
[2021-05-07 22:57] VITALS: BP 178/90
--- NOTE | 2021-05-08 02:48 | REPVR ---
PROCEDURE INFORMATION: Exam: US Duplex Left Lower Extremity Veins, Limited Exam date and time: 05/08/2021 1:38 AM Age: 71 years old Clinical indication: Swelling (edema) of limb; Lower extremity, left; Additional info: Pain /swelling with no injury to the left lower leg TECHNIQUE: Imaging protocol: Real-time Duplex ultrasound of the Left Lower Extremity with 2-D barreto scale, color Doppler flow and spectral waveform analysis with image documentation. Limited exam focused on the left lower extremity veins. COMPARISON: No relevant prior studies available. FINDINGS: Left deep veins: Unremarkable. The left common femoral, femoral, popliteal, posterior tibial, and peroneal veins are patent without thrombus. Normal compressibility, augmentation response, and Doppler waveforms. Left superficial veins: Unremarkable. Saphenofemoral junction is patent without thrombus. Right common femoral vein: The right common femoral vein is patent and demonstrates normal compressibility, normal color Doppler flow, and a normal spectral waveform response to augmentation. IMPRESSION: No deep vein thrombosis in the veins imaged in the left lower extremity. Electronically signed by: Addy Sands On 05/08/2021 02:47:24 AM
[2021-05-08] MEDS ORDERED: OXYB5TAB10 (04:45)
== END 2021-05-08 05:40 | disposition home or self-care (01) ==
LOC: M ED 22:56
DX: M79.605 Pain in left leg (principal); E11.9 Type 2 diabetes mellitus without complications; I10 Essential (primary) hypertension; E78.5 Hyperlipidemia, unspecified; Z79.82 Long term (current) use of aspirin; Z79.84 Long term (current) use of oral hypoglycemic drugs; Z79.899 Other long term (current) drug therapy; Z88.0 Allergy status to penicillin; Z88.1 Allergy status to other antibiotic agents; Z88.4 Allergy status to anesthetic agent

== ENCOUNTER → 2021-07-27 | Outpatient (CLI) | payer MEDICARE, OTHER ==
[~2021-07-27] MED LIST changes: +OXYB5TAB10
[2021-07-30 10:05] LABS: BASO # 0.1 10^3/uL (0.0-0.2); BASO % 0.6 % (0.0-1.0); EOS # 0.2 10^3/uL (0.0-0.5); EOS % 1.8 % (0.0-3.0); HEMOGLOBIN 15.6 g/dl (13.5-17.5); LYMPH # 2.8 10^3/uL (1.5-5.0); MEAN CORPUSCULAR HEMOGLOBIN 29.9 pg (27.0-33.0); MEAN CORPUSCULAR HGB CONC 33.2 g/dl (32.0-36.5); MEAN CORPUSCULAR VOLUME 90.2 fl (80.0-96.0); MONO # 0.9 10^3/uL (0.0-0.8); NEUTROPHILS # 8.6 10^3/uL (1.5-8.5); NEUTROPHILS % 67.7 % (36.0-66.0); PLATELET COUNT, AUTOMATED 221 10^3/uL (150-450); RED BLOOD COUNT 5.21 10^6/uL (4.30-6.10); WHITE BLOOD COUNT 12.7 10^3/uL (4.0-10.0)
[2021-07-30 10:27] LABS: ALBUMIN 4.1 GM/DL (3.2-5.2); ALT/SGPT 49 U/L (12-78); BILIRUBIN,TOTAL 1.2 MG/DL (0.2-1.0); BLOOD UREA NITROGEN 18 MG/DL (7-18); CALCIUM LEVEL 9.3 MG/DL (8.8-10.2); CARBON DIOXIDE LEVEL 28 MEQ/L (21-32); CHLORIDE LEVEL 104 MEQ/L (98-107); CHOLESTEROL LEVEL 116 MG/DL (<200); CHOLESTEROL RISK RATIO 3.052 (<5); CREATININE FOR GFR 1.13 MG/DL (0.70-1.30); GLOMERULAR FILTRATION RATE > 60.0 (>42); GLUCOSE, FASTING 151 MG/DL (70-100); HDL CHOLESTEROL 38 MG/DL (>40); LDL CHOLESTEROL 38 MG/DL (<100); MAGNESIUM LEVEL 2.1 MG/DL (1.8-2.4); NON-HDL-C 78 MG/DL; SODIUM LEVEL 138 MEQ/L (136-145); TOTAL PROTEIN 7.3 GM/DL (6.4-8.2); TRIGLYCERIDES LEVEL 199 MG/DL (<150)
[2021-07-30 11:00] LABS: MAU/CREAT RATIO 554.7 MCG/MG (0.0-30.0)
[2021-07-30 11:27] LABS: HEMOGLOBIN A1c 7.1 %
== END ==
LOC: M WUC 10:45
PROVIDERS: ATTEND Internal Medicine
DX: I10 Essential (primary) hypertension (principal); E11.3293 Type 2 diabetes mellitus with mild nonproliferative diabetic retinopathy without macular edema, bilateral; E78.00 Pure hypercholesterolemia, unspecified; G47.30 Sleep apnea, unspecified

== ENCOUNTER 2021-08-21 08:59 | Inpatient (IN) | payer MEDICARE, OTHER ==
[~2021-08-21] VITALS: Ht 172.7 cm; Wt 80.4 kg
[~2021-08-21 08:59] MED LIST changes: -LISI10TA15 PO; +LISI10TA24 PO; +POTA-151 PO; -POTA20TA6 PO
[2021-08-21] MEDS ORDERED: MYRB50TA (09:14)
[2021-08-21] MEDS ORDERED: DICY10CA13 (09:14)
[2021-08-21 10:34] LABS: BASO % 0.3 % (0.0-1.0); HEMATOCRIT 43.5 % (42.0-52.0); HEMOGLOBIN 14.5 g/dl (13.5-17.5); LYMPH # 0.7 10^3/uL (1.5-5.0); MEAN CORPUSCULAR HEMOGLOBIN 29.4 pg (27.0-33.0); MEAN CORPUSCULAR HGB CONC 33.3 g/dl (32.0-36.5); MEAN CORPUSCULAR VOLUME 88.1 fl (80.0-96.0); MONO # 0.4 10^3/uL (0.0-0.8); MONO % 3.4 % (2.0-8.0); NEUTROPHILS # 10.7 10^3/uL (1.5-8.5); PLATELET COUNT, AUTOMATED 210 10^3/uL (150-450); RED BLOOD COUNT 4.94 10^6/uL (4.30-6.10); WHITE BLOOD COUNT 11.9 10^3/uL (4.0-10.0)
[2021-08-21 10:37] LABS: RSV AMPLIFICATION NEGATIVE (NEGATIVE)
[2021-08-21 11:07] LABS: ALBUMIN 3.3 GM/DL (3.2-5.2); BILIRUBIN,DIRECT 0.3 MG/DL (0.0-0.2); CREATININE FOR GFR 1.29 MG/DL (0.70-1.30); GLOMERULAR FILTRATION RATE 58.6 (>42); POTASSIUM SERUM 3.2 MEQ/L (3.5-5.1); TOTAL PROTEIN 6.5 GM/DL (6.4-8.2)
[2021-08-21] MEDS ORDERED: ISOVUE-370 76% 100ML VIAL As Ordered ONE (11:49)
[2021-08-21] MEDS: GASTROGRAFIN SOLUTION 30ML PO SCH ×2 (12:41→13:10)
[2021-08-21] MEDS ORDERED: PIPERACILLIN/TAZOBACTAM SOD 3.375 GM in D5W MINI-BAG PLUS 50 ML IV ONE (15:45)
[2021-08-21] MEDS ORDERED: ACETAMINOPHEN 325 MG TAB PO ONE (16:10)
[2021-08-21] MEDS ORDERED: NS 1,000 ML IV ONE (16:10)
[2021-08-21] MEDS ORDERED: URO-1CAP PO (16:35)
[2021-08-21] MEDS ORDERED: GABAPENTIN 300 MG CAP PO PRN (16:35)
[2021-08-21] MEDS ORDERED: HOME MED LIST COMPLETE! XX SCH (16:40)
[2021-08-21] MEDS ORDERED: GLUCOSE 4GM CHEW TABLET PO PRN (17:50)
[2021-08-21] MEDS ORDERED: DEXTROSE 50% 50 ML SYRINGE IV PRN (17:50)
[2021-08-21] MEDS ORDERED: GLUCAGON INJ 1MG VIAL SC PRN (17:50)
[2021-08-21] MEDS: HumaLOG INSULIN (NovoLOG) PER UNIT SC SCH (21:00)
[2021-08-21] MEDS: amLODIPine 5 MG TAB PO SCH (21:00)
[2021-08-21] MEDS: PIPERACILLIN/TAZOBACTAM SOD 3.375 GM in D5W MINI-BAG PLUS 50 ML IV SCH (21:27)
[2021-08-21] MEDS: DOCUSATE SODIUM 100MG CAPSULE PO SCH (21:27)
[2021-08-21] MEDS: POTASSIUM CHLORIDE 10MEQ SR TABLET PO SCH (21:28)
[2021-08-21] MEDS: SITagliptin 50 MG TAB (JANUVIA) PO SCH (21:28)
[2021-08-21] MEDS: CARVedilol 12.5 MG TAB PO SCH (21:29)
[2021-08-21 23:45] VITALS: BP 135/70
[2021-08-22] MEDS: ACETAMINOPHEN TAB 650MG DOSE (2X325MG) PO PRN ×2 (03:18→21:28)
[2021-08-22] MEDS: PIPERACILLIN/TAZOBACTAM SOD 3.375 GM in D5W MINI-BAG PLUS 50 ML IV SCH ×4 (03:19→21:30)
[2021-08-22 06:00] VITALS: BP 118/71
[2021-08-22 08:25] LABS: HEMOGLOBIN 13.6 g/dl (13.5-17.5); MEAN CORPUSCULAR HGB CONC 32.4 g/dl (32.0-36.5); MEAN CORPUSCULAR VOLUME 89.6 fl (80.0-96.0); PLATELET COUNT, AUTOMATED 181 10^3/uL (150-450); RED BLOOD COUNT 4.69 10^6/uL (4.30-6.10); WHITE BLOOD COUNT 9.4 10^3/uL (4.0-10.0)
[2021-08-22 08:52] LABS: CALCIUM LEVEL 8.4 MG/DL (8.8-10.2); CREATININE FOR GFR 1.27 MG/DL (0.70-1.30); GLOMERULAR FILTRATION RATE 59.7 (>42); MAGNESIUM LEVEL 2.5 MG/DL (1.8-2.4); POTASSIUM SERUM 3.3 MEQ/L (3.5-5.1)
[2021-08-22] MEDS: HumaLOG INSULIN (NovoLOG) PER UNIT SC SCH ×4 (10:11→21:00)
[2021-08-22] MEDS: ROSUVASTATIN 10 MG TAB (CRESTOR) PO SCH (10:12)
[2021-08-22] MEDS: CARVedilol 12.5 MG TAB PO SCH ×2 (10:12→21:29)
[2021-08-22] MEDS: DOCUSATE SODIUM 100MG CAPSULE PO SCH ×2 (10:12→21:27)
[2021-08-22] MEDS: HEPARIN SOD (PORCINE) 5000UNITS/ML 1ML VIAL/SYRINGE SC SCH ×2 (10:13→21:30)
[2021-08-22] MEDS: POTASSIUM CHLORIDE 10MEQ SR TABLET PO SCH ×2 (10:13→21:28)
[2021-08-22] MEDS: ASPIRIN 81MG ENTERIC TABLET PO SCH (10:13)
[2021-08-22] MEDS: lisinopriL 40 MG TAB PO SCH (10:13)
[2021-08-22 14:00] VITALS: BP 125/76
[2021-08-22] MEDS: SITagliptin 50 MG TAB (JANUVIA) PO SCH (21:28)
[2021-08-22] MEDS: amLODIPine 5 MG TAB PO SCH (21:29)
[2021-08-22 22:00] VITALS: BP 139/82
[2021-08-23] MEDS: PIPERACILLIN/TAZOBACTAM SOD 3.375 GM in D5W MINI-BAG PLUS 50 ML IV SCH ×4 (03:23→21:21)
[2021-08-23 06:32] VITALS: BP 132/85
[2021-08-23] MEDS: HumaLOG INSULIN (NovoLOG) PER UNIT SC SCH ×4 (08:33→21:00)
[2021-08-23] MEDS: lisinopriL 40 MG TAB PO SCH (08:35)
[2021-08-23] MEDS: ASPIRIN 81MG ENTERIC TABLET PO SCH (08:35)
[2021-08-23] MEDS: POTASSIUM CHLORIDE 10MEQ SR TABLET PO SCH ×2 (08:36→21:22)
[2021-08-23] MEDS: DOCUSATE SODIUM 100MG CAPSULE PO SCH ×2 (08:36→21:23)
[2021-08-23] MEDS: CARVedilol 12.5 MG TAB PO SCH ×2 (08:37→21:22)
[2021-08-23] MEDS: ROSUVASTATIN 10 MG TAB (CRESTOR) PO SCH (08:38)
[2021-08-23] MEDS: HEPARIN SOD (PORCINE) 5000UNITS/ML 1ML VIAL/SYRINGE SC SCH ×2 (08:39→21:23)
[2021-08-23 14:00] VITALS: BP 128/82
[2021-08-23] MEDS: FLUCONAZOLE 100 MG TAB PO SCH (15:19)
[2021-08-23] MEDS: SITagliptin 50 MG TAB (JANUVIA) PO SCH (21:22)
[2021-08-23] MEDS: amLODIPine 5 MG TAB PO SCH (21:23)
[2021-08-23 22:00] VITALS: BP 160/82
[2021-08-24] MEDS: PIPERACILLIN/TAZOBACTAM SOD 3.375 GM in D5W MINI-BAG PLUS 50 ML IV SCH (03:02)
[2021-08-24 06:00] VITALS: BP 125/56
[2021-08-24 06:15] LABS: HEMATOCRIT 42.6 % (42.0-52.0); HEMOGLOBIN 14.3 g/dl (13.5-17.5); MEAN CORPUSCULAR HEMOGLOBIN 29.4 pg (27.0-33.0); MEAN CORPUSCULAR HGB CONC 33.6 g/dl (32.0-36.5); MEAN CORPUSCULAR VOLUME 87.7 fl (80.0-96.0); PLATELET COUNT, AUTOMATED 211 10^3/uL (150-450); RED BLOOD COUNT 4.86 10^6/uL (4.30-6.10); WHITE BLOOD COUNT 7.5 10^3/uL (4.0-10.0)
[2021-08-24 06:40] LABS: BLOOD UREA NITROGEN 9 MG/DL (7-18); CALCIUM LEVEL 8.6 MG/DL (8.8-10.2); CARBON DIOXIDE LEVEL 28 MEQ/L (21-32); CHLORIDE LEVEL 106 MEQ/L (98-107); CREATININE FOR GFR 0.85 MG/DL (0.70-1.30); GLOMERULAR FILTRATION RATE > 60.0 (>42); GLUCOSE, FASTING 181 MG/DL (70-100); MAGNESIUM LEVEL 2.3 MG/DL (1.8-2.4); POTASSIUM SERUM 3.1 MEQ/L (3.5-5.1); SODIUM LEVEL 141 MEQ/L (136-145)
[2021-08-24] MEDS ORDERED: POTASSIUM CHLORIDE 10MEQ SR TABLET PO ONE (08:00)
[2021-08-24] MEDS: FLUCONAZOLE 100 MG TAB PO SCH (08:35)
[2021-08-24] MEDS: HEPARIN SOD (PORCINE) 5000UNITS/ML 1ML VIAL/SYRINGE SC SCH (08:35)
[2021-08-24] MEDS: ASPIRIN 81MG ENTERIC TABLET PO SCH (08:36)
[2021-08-24 08:37] VITALS: BP 157/87
[2021-08-24] MEDS: POTASSIUM CHLORIDE 10MEQ SR TABLET PO SCH (08:37)
[2021-08-24] MEDS: CARVedilol 12.5 MG TAB PO SCH (08:37)
[2021-08-24] MEDS: DOCUSATE SODIUM 100MG CAPSULE PO SCH (08:38)
[2021-08-24] MEDS: lisinopriL 40 MG TAB PO SCH (08:38)
[2021-08-24] MEDS: HumaLOG INSULIN (NovoLOG) PER UNIT SC SCH ×2 (08:40→13:01)
[2021-08-24] MEDS: ROSUVASTATIN 10 MG TAB (CRESTOR) PO SCH (08:41)
[2021-08-24] MEDS ORDERED: FLUC100T3 PO (12:45)
== END 2021-08-24 14:45 | disposition home or self-care (01) | DRG 699 ==
LOC: M ED 08:59 → M MS5PR 23:35 → M ED 23:36
PROVIDERS: ADMIT Internal Medicine; ATTEND Family Medicine
DX: T83.518A Infection and inflammatory reaction due to other urinary catheter, initial encounter (principal); N39.0 Urinary tract infection, site not specified; T83.511A Infection and inflammatory reaction due to indwelling urethral catheter, initial encounter; I10 Essential (primary) hypertension; E11.9 Type 2 diabetes mellitus without complications; E78.00 Pure hypercholesterolemia, unspecified; E87.6 Hypokalemia; Z79.82 Long term (current) use of aspirin; Z79.899 Other long term (current) drug therapy; Z88.0 Allergy status to penicillin; Z88.1 Allergy status to other antibiotic agents; Z88.8 Allergy status to other drugs, medicaments and biological substances; M19.90 Unspecified osteoarthritis, unspecified site; E55.9 Vitamin D deficiency, unspecified; I44.7 Left bundle-branch block, unspecified; Z85.46 Personal history of malignant neoplasm of prostate; Y84.6 Urinary catheterization as the cause of abnormal reaction of the patient, or of later complication, without mention of misadventure at the time of the procedure

== ENCOUNTER → 2021-09-05 | Outpatient (CLI) | payer MEDICARE, OTHER ==
[~2021-09-05] MED LIST changes: +DICY10CA13; +FLUC100T PO; +LISI10TA15 PO; -LISI10TA24 PO; +MYRB50TA; -POTA-151 PO; +POTA20TA6 PO; +URO-1CAP PO
== END ==
LOC: M WUC 10:49
PROVIDERS: ATTEND Urology
DX: C61 Malignant neoplasm of prostate (principal)

== ENCOUNTER → 2021-09-17 | Outpatient (CLI) | payer MEDICARE, OTHER ==
[~2021-09-17] MED LIST changes: -LISI10TA15 PO; +LISI10TA24 PO; +POTA-151 PO; -POTA20TA6 PO
[2021-09-17 09:36] LABS: BASO # 0.1 10^3/uL (0.0-0.2); BASO % 0.5 % (0.0-1.0); EOS # 0.4 10^3/uL (0.0-0.5); EOS % 3.6 % (0.0-3.0); HEMATOCRIT 43.5 % (42.0-52.0); HEMOGLOBIN 14.6 g/dl (13.5-17.5); LYMPH # 2.7 10^3/uL (1.5-5.0); LYMPH % 27.2 % (24.0-44.0); MEAN CORPUSCULAR HEMOGLOBIN 29.7 pg (27.0-33.0); MEAN CORPUSCULAR HGB CONC 33.6 g/dl (32.0-36.5); MEAN CORPUSCULAR VOLUME 88.4 fl (80.0-96.0); MONO # 0.5 10^3/uL (0.0-0.8); MONO % 5.2 % (2.0-8.0); NEUTROPHILS # 6.2 10^3/uL (1.5-8.5); NEUTROPHILS % 63.2 % (36.0-66.0); PLATELET COUNT, AUTOMATED 176 10^3/uL (150-450); RED BLOOD COUNT 4.92 10^6/uL (4.30-6.10); WHITE BLOOD COUNT 9.9 10^3/uL (4.0-10.0)
[2021-09-17 10:23] LABS: ALBUMIN 3.8 GM/DL (3.2-5.2); ALT/SGPT 31 U/L (12-78); BILIRUBIN,TOTAL 0.6 MG/DL (0.2-1.0); BLOOD UREA NITROGEN 18 MG/DL (7-18); CALCIUM LEVEL 9.3 MG/DL (8.8-10.2); CARBON DIOXIDE LEVEL 29 MEQ/L (21-32); CHLORIDE LEVEL 108 MEQ/L (98-107); CREATININE FOR GFR 1.02 MG/DL (0.70-1.30); GLOMERULAR FILTRATION RATE > 60.0 (>42); GLUCOSE, FASTING 158 MG/DL (70-100); POTASSIUM SERUM 3.5 MEQ/L (3.5-5.1); SODIUM LEVEL 144 MEQ/L (136-145); TOTAL PROTEIN 6.9 GM/DL (6.4-8.2)
== END ==
LOC: M LAB 09:02
PROVIDERS: ATTEND Internal Medicine
DX: Z87.440 Personal history of urinary (tract) infections (principal); I10 Essential (primary) hypertension
CPT/HCPCS: 36415; 80053; 85025; G0463

== ENCOUNTER → 2022-01-29 | Outpatient (CLI) | payer MEDICARE, OTHER ==
[~2022-01-29] MED LIST changes: -FLUC100T PO; +FLUC100T3 PO
[2022-01-29 13:40] LABS: BASO # 0.1 10^3/uL (0.0-0.2); BASO % 0.5 % (0.0-1.0); EOS # 0.3 10^3/uL (0.0-0.5); EOS % 2.9 % (0.0-3.0); HEMATOCRIT 45.3 % (42.0-52.0); HEMOGLOBIN 14.9 g/dl (13.5-17.5); LYMPH # 2.3 10^3/uL (1.5-5.0); LYMPH % 24.9 % (24.0-44.0); MEAN CORPUSCULAR HEMOGLOBIN 29.2 pg (27.0-33.0); MEAN CORPUSCULAR HGB CONC 32.9 g/dl (32.0-36.5); MEAN CORPUSCULAR VOLUME 88.8 fl (80.0-96.0); MONO # 0.5 10^3/uL (0.0-0.8); MONO % 5.3 % (2.0-8.0); NEUTROPHILS # 6.2 10^3/uL (1.5-8.5); NEUTROPHILS % 66.1 % (36.0-66.0); PLATELET COUNT, AUTOMATED 216 10^3/uL (150-450); WHITE BLOOD COUNT 9.3 10^3/uL (4.0-10.0)
[2022-01-29 14:10] LABS: ALBUMIN 3.9 GM/DL (3.2-5.2); ALT/SGPT 25 U/L (12-78); BILIRUBIN,TOTAL 0.7 MG/DL (0.2-1.0); BLOOD UREA NITROGEN 16 MG/DL (7-18); CALCIUM LEVEL 8.9 MG/DL (8.8-10.2); CARBON DIOXIDE LEVEL 30 MEQ/L (21-32); CHLORIDE LEVEL 106 MEQ/L (98-107); CHOLESTEROL LEVEL 89 MG/DL (<200); CHOLESTEROL RISK RATIO 2.472 (<5); CREATININE FOR GFR 1.09 MG/DL (0.70-1.30); GLOMERULAR FILTRATION RATE > 60.0 (>42); GLUCOSE, FASTING 164 MG/DL (70-100); HDL CHOLESTEROL 36 MG/DL (>40); LDL CHOLESTEROL 18 MG/DL (<100); MAGNESIUM LEVEL 2.1 MG/DL (1.8-2.4); NON-HDL-C 53 MG/DL; POTASSIUM SERUM 3.9 MEQ/L (3.5-5.1); SODIUM LEVEL 140 MEQ/L (136-145); TOTAL PROTEIN 7.1 GM/DL (6.4-8.2); TRIGLYCERIDES LEVEL 176 MG/DL (<150)
[2022-01-29 14:13] LABS: CREATININE, URINE 80.8 MG/DL; MAU/CREAT RATIO 362.6 MCG/MG (0.0-30.0)
== END ==
LOC: M WUC 11:56
PROVIDERS: ATTEND Internal Medicine
DX: E78.00 Pure hypercholesterolemia, unspecified (principal); I10 Essential (primary) hypertension; E11.3293 Type 2 diabetes mellitus with mild nonproliferative diabetic retinopathy without macular edema, bilateral; Z85.46 Personal history of malignant neoplasm of prostate

== ENCOUNTER → 2022-03-12 | Outpatient (CLI) | payer MEDICARE, OTHER | LOC: M WUC 15:18 | PROVIDERS: ATTEND Urology | DX: C61 Malignant neoplasm of prostate (principal) ==

== ENCOUNTER → 2022-06-28 | Outpatient (CLI) | payer MEDICARE, OTHER ==
[2022-06-28 13:42] LABS: APPEARANCE, URINE MANUAL CLEAR (CLEAR); COLOR, URINE MANUAL LT YELLOW (YELLOW)
[2022-06-28 13:43] LABS: BILIRUBIN, URINE MANUAL NEGATIVE (NEGATIVE); BLOOD URINE MANUAL NEGATIVE (NEGATIVE); GLUCOSE, URINE (UA) MANUAL 4+(1000 MG/DL) mg/dL (NEGATIVE); KETONE, URINE MANUAL NEGATIVE (NEGATIVE); LEUKOCYTE ESTERASE, URINE MAN NEGATIVE (NEGATIVE); NITRITE, URINE MANUAL NEGATIVE (NEGATIVE); PROTEIN, URINE MANUAL NEGATIVE (NEGATIVE); UROBILINOGEN, URINE MANUAL NORMAL (NORMAL)
== END ==
LOC: M WUC 10:18
PROVIDERS: ATTEND Student in an Organized Health Care Education/Training Program
DX: N35.014 Post-traumatic urethral stricture, male, unspecified (principal)

== ENCOUNTER → 2022-07-09 | Outpatient (REF) | payer MEDICARE, OTHER | LOC: M LAB REF 16:33 | PROVIDERS: ATTEND Student in an Organized Health Care Education/Training Program | DX: N39.0 Urinary tract infection, site not specified (principal); N35.014 Post-traumatic urethral stricture, male, unspecified ==

== ENCOUNTER 2022-08-16 11:22 | Emergency (ER) | payer MEDICARE, OTHER ==
[2022-08-16] MEDS ORDERED: FARX1TAB3 (11:51)
[2022-08-16] MEDS ORDERED: NS 1,000 ML IV ONE (12:25)
[2022-08-16] MEDS ORDERED: MORPHINE 4 MG/ML 1ML VIAL/SYRINGE IV ONE (12:25)
[2022-08-16] MEDS ORDERED: ONDANSETRON 4MG 2ML VIAL IV ONE (12:25)
[2022-08-16 12:44] LABS: BASO # 0.2 10^3/uL (0.0-0.2); BASO % 0.8 % (0.0-1.0); HEMATOCRIT 47.9 % (42.0-52.0); HEMOGLOBIN 16.3 g/dl (13.5-17.5); LYMPH # 1.5 10^3/uL (1.5-5.0); MEAN CORPUSCULAR HEMOGLOBIN 29.2 pg (27.0-33.0); MEAN CORPUSCULAR VOLUME 85.8 fl (80.0-96.0); MONO # 1.2 10^3/uL (0.0-0.8); MONO % 5.5 % (2.0-8.0); NEUTROPHILS # 18.8 10^3/uL (1.5-8.5); NEUTROPHILS % 86.4 % (36.0-66.0); PLATELET COUNT, AUTOMATED 227 10^3/uL (150-450); RED BLOOD COUNT 5.58 10^6/uL (4.30-6.10); WHITE BLOOD COUNT 21.8 10^3/uL (4.0-10.0)
[2022-08-16 13:15] LABS: RSV AMPLIFICATION NEGATIVE (NEGATIVE)
[2022-08-16 13:19] LABS: ALBUMIN 4.3 G/DL (3.2-5.2); BILIRUBIN,DIRECT 0.3 MG/DL (<0.4); BILIRUBIN,TOTAL 1.1 MG/DL (0.3-1.2); TOTAL PROTEIN 7.4 G/DL (5.7-8.2)
[2022-08-16] MEDS ORDERED: ISOVUE-370 76% 100ML VIAL As Ordered ONE (13:33)
[2022-08-16] MEDS ORDERED: ONDANSETRON 4MG ORAL DISINTEGRATING TAB PO ONE (17:00)
[2022-08-16] MEDS ORDERED: ONDA4TAB6 PO (17:16)
[2022-08-16 17:19] VITALS: BP 151/76
== END 2022-08-16 17:21 | disposition home or self-care (01) ==
LOC: M ED 11:22
DX: R10.9 Unspecified abdominal pain (principal); R11.2 Nausea with vomiting, unspecified; E11.9 Type 2 diabetes mellitus without complications; I10 Essential (primary) hypertension; Z85.46 Personal history of malignant neoplasm of prostate; Z88.0 Allergy status to penicillin; Z88.8 Allergy status to other drugs, medicaments and biological substances; Z79.899 Other long term (current) drug therapy; Z79.84 Long term (current) use of oral hypoglycemic drugs
CPT/HCPCS: 74177; 76705; 80076; 83690; 85025; 87631; 96361; 96374; 96375; 99284; J2270; J2405; Q9967

== ENCOUNTER → 2022-10-15 | Outpatient (REF) | payer MEDICARE, OTHER ==
[~2022-10-15] MED LIST changes: +FARX1TAB3; +ONDA4TAB6 PO
== END ==
LOC: M LAB REF 12:23 → M LABWUC 12:23
PROVIDERS: ATTEND Urology
DX: C61 Malignant neoplasm of prostate (principal)

== ENCOUNTER → 2022-11-09 | Outpatient (REF) | payer MEDICARE, OTHER ==
[2022-11-09 18:05] LABS: APPEARANCE, URINE MANUAL CLEAR (CLEAR); COLOR, URINE MANUAL LT YELLOW (YELLOW)
[2022-11-09 18:06] LABS: BILIRUBIN, URINE MANUAL NEGATIVE (NEGATIVE); BLOOD URINE MANUAL POSITIVE (NEGATIVE); GLUCOSE, URINE (UA) MANUAL 4+(1000 MG/DL) mg/dL (NEGATIVE); KETONE, URINE MANUAL 1+ mg/dL (NEGATIVE); LEUKOCYTE ESTERASE, URINE MAN NEGATIVE (NEGATIVE); NITRITE, URINE MANUAL NEGATIVE (NEGATIVE); PROTEIN, URINE MANUAL TRACE mg/dL (NEGATIVE); UROBILINOGEN, URINE MANUAL NORMAL (NORMAL)
[2022-11-09 18:19] LABS: BACTERIA, URINE NONE SEEN; HYALINE CAST, URINE NONE SEEN /lpf (0-1); SQUAMOUS EPITHELIAL CELL URINE NONE SEEN /hpf (SMALL AMT); WBC, URINE 0-1 /hpf (0-3)
== END ==
LOC: M LAB REF 17:14
PROVIDERS: ATTEND Physician Assistant
DX: M54.9 Dorsalgia, unspecified (principal)

== ENCOUNTER → 2023-02-27 | Day surgery (SDC) | payer MEDICARE, OTHER ==
[~2023-02-27] VITALS: Ht 170.2 cm; Wt 81.9 kg
[~2023-02-27] MED LIST changes: +LIDOCAINE 2% 100MG/5ML SDV (FOR ANES.) As Ordered ONE; +LISI20TA33 PO; +NS 1,000 ML IV ONE; +propofoL 200 MG/20 ML VIAL As Ordered ONE
[2023-02-27 13:06] VITALS: BP 186/96
== END | disposition home or self-care (01) ==
LOC: M OPP 10:10
PROVIDERS: ATTEND Surgery
DX: Z86.010 Personal history of colon polyps (principal); K57.30 Diverticulosis of large intestine without perforation or abscess without bleeding; I10 Essential (primary) hypertension; E78.5 Hyperlipidemia, unspecified; E11.9 Type 2 diabetes mellitus without complications; K58.9 Irritable bowel syndrome, unspecified; M19.90 Unspecified osteoarthritis, unspecified site; F41.9 Anxiety disorder, unspecified; G47.33 Obstructive sleep apnea (adult) (pediatric); Z87.891 Personal history of nicotine dependence; Z88.0 Allergy status to penicillin; Z88.1 Allergy status to other antibiotic agents; Z88.4 Allergy status to anesthetic agent; Z79.84 Long term (current) use of oral hypoglycemic drugs; Z79.899 Other long term (current) drug therapy

== ENCOUNTER → 2023-03-10 | Outpatient (REF) | payer MEDICARE, OTHER ==
[~2023-03-10] MED LIST changes: -LIDOCAINE 2% 100MG/5ML SDV (FOR ANES.) As Ordered ONE; -NS 1,000 ML IV ONE; -propofoL 200 MG/20 ML VIAL As Ordered ONE
== END ==
LOC: M LAB REF 12:18
PROVIDERS: ATTEND Internal Medicine
DX: D48.5 Neoplasm of uncertain behavior of skin (principal)

== ENCOUNTER → 2023-04-10 | Outpatient (CLI) | payer MEDICARE, OTHER ==
[~2023-04-10] MED LIST changes: +DICY-61; -DICY10CA13
== END ==
LOC: M WUC 10:35
PROVIDERS: ATTEND Urology
DX: C61 Malignant neoplasm of prostate (principal)

== ENCOUNTER → 2023-10-03 | Outpatient (REF) | payer MEDICARE, OTHER ==
[~2023-10-03] MED LIST changes: +DICL100G10 TOP; -DICL1GEL3 TOP; -OXYB5TAB10; +OXYB5TAB11
== END ==
LOC: M LABWUC 12:40
PROVIDERS: ATTEND Urology
DX: C61 Malignant neoplasm of prostate (principal)

== ENCOUNTER → 2024-02-26 | Outpatient (REF) | payer MEDICARE, OTHER ==
[~2024-02-26] MED LIST changes: -ASPI-161 PO; +ASPI-615 PO; -OXYB5TAB11; +OXYB5TAB14; +ROSU5TAB40 PO; -ROSU5TAB5 PO
== END ==
LOC: M LABWUC 16:42
PROVIDERS: ATTEND Nurse Practitioner Family
DX: C61 Malignant neoplasm of prostate (principal)

== ENCOUNTER → 2024-03-02 | Outpatient (CLI) | payer MEDICARE, OTHER ==
[~2024-03-02] MED LIST changes: +ONDA-282 PO; -ONDA4TAB6 PO; +PROHANCE 279.3MG/ML 15ML VIAL ONE; +PROHANCE 279.3MG/ML 5ML VIAL ONE
== END ==
LOC: M PLAIMG 10:13
PROVIDERS: ATTEND Internal Medicine
DX: R42 Dizziness and giddiness (principal); I10 Essential (primary) hypertension
CPT/HCPCS: 70549; 70553; A9576

== ENCOUNTER → 2024-06-24 | Outpatient (CLI) | payer MEDICARE, OTHER ==
[~2024-06-24] MED LIST changes: -PROHANCE 279.3MG/ML 15ML VIAL ONE; -PROHANCE 279.3MG/ML 5ML VIAL ONE
== END ==
LOC: M WUC 14:57
PROVIDERS: ATTEND Nurse Practitioner Family
DX: C61 Malignant neoplasm of prostate (principal)

== ENCOUNTER → 2024-07-21 | Outpatient (REF) | payer MEDICARE, OTHER ==
[~2024-07-21] MED LIST changes: +GABA-1172 PO; -GABA-282 PO
== END ==
LOC: M LAB REF 21:19
PROVIDERS: ATTEND Physician Assistant
DX: B34.9 Viral infection, unspecified (principal)

== ENCOUNTER → 2024-09-06 | Outpatient (REF) | payer MEDICARE, OTHER ==
[~2024-09-06] MED LIST changes: -ROSU5TAB40 PO; +ROSU5TAB49 PO
[2024-09-08 07:27] LABS: LDL DIRECT 34 mg/dL (<100)
== END ==
LOC: M LAB REF 16:49
PROVIDERS: ATTEND Internal Medicine
DX: E78.5 Hyperlipidemia, unspecified (principal)

== ENCOUNTER → 2024-09-23 | Outpatient (REF) | payer MEDICARE, OTHER | LOC: M LAB REF 17:22 | PROVIDERS: ATTEND Physician Assistant Medical | DX: B34.9 Viral infection, unspecified (principal) ==

== ENCOUNTER → 2024-11-10 | Outpatient (CLI) | payer MEDICARE, OTHER ==
[~2024-11-10] MED LIST changes: +BICA50TA4 PO
== END ==
LOC: M ONCR 13:37
PROVIDERS: ATTEND General Practice
DX: C61 Malignant neoplasm of prostate (principal); Z90.79 Acquired absence of other genital organ(s); Z87.442 Personal history of urinary calculi; Z80.42 Family history of malignant neoplasm of prostate; Z88.0 Allergy status to penicillin; Z88.1 Allergy status to other antibiotic agents; Z88.4 Allergy status to anesthetic agent; Z79.84 Long term (current) use of oral hypoglycemic drugs; Z79.899 Other long term (current) drug therapy; R97.21 Rising PSA following treatment for malignant neoplasm of prostate

== ENCOUNTER 2024-11-25 13:57 | Outpatient (RCR) | payer MEDICARE, OTHER ==
[2024-11-25] MEDS ORDERED: LEUPROLIDE 45MG SYRINGE KIT (LUPRON DEPOT) IM ONE (14:00)
== END 2024-11-26 ==
LOC: M ONCR 13:57
PROVIDERS: ATTEND General Practice
DX: Z51.0 Encounter for antineoplastic radiation therapy (principal); C61 Malignant neoplasm of prostate

== ENCOUNTER → 2024-11-25 | Outpatient (CLI) | payer MEDICARE, OTHER ==
[2024-11-25] MEDS: LEUPROLIDE 45MG SYRINGE KIT (LUPRON DEPOT) IM ONE (14:26)
== END ==
LOC: M ONCR 14:00
PROVIDERS: ATTEND General Practice
DX: C61 Malignant neoplasm of prostate (principal)
CPT/HCPCS: 96402; J9217

== ENCOUNTER → 2024-12-27 | Outpatient (RCR) | payer MEDICARE, OTHER | LOC: M ONCR 11-29 07:50 | PROVIDERS: ATTEND General Practice | DX: Z51.0 Encounter for antineoplastic radiation therapy (principal); C61 Malignant neoplasm of prostate ==

== ENCOUNTER → 2025-01-26 | Outpatient (RCR) | payer MEDICARE, OTHER ==
[~2025-01-26] MED LIST changes: +TAMS-18 PO
== END ==
LOC: M ONCR 12-28 13:14
PROVIDERS: ATTEND General Practice
DX: Z51.0 Encounter for antineoplastic radiation therapy (principal); C61 Malignant neoplasm of prostate

== ENCOUNTER → 2025-04-29 | Outpatient (CLI) | payer MEDICARE, OTHER ==
[~2025-04-29] MED LIST changes: +OXYB10TA23 PO
[2025-04-29 13:06] LABS: PROSTATIC SPECIFIC AG MONITOR 0.04 NG/ML (< 4.00)
[2025-04-29 13:11] LABS: TESTOSTERONE 16.0 NG/DL (241-827)
== END ==
LOC: M WUC 10:19
PROVIDERS: ATTEND General Practice
DX: C61 Malignant neoplasm of prostate (principal)

== ENCOUNTER → 2025-05-06 | Outpatient (CLI) | payer MEDICARE, OTHER | LOC: M ONCR 13:56 | PROVIDERS: ATTEND General Practice | DX: C61 Malignant neoplasm of prostate (principal); R35.0 Frequency of micturition; R23.2 Flushing; Z79.84 Long term (current) use of oral hypoglycemic drugs; Z79.899 Other long term (current) drug therapy; Z88.0 Allergy status to penicillin; Z88.1 Allergy status to other antibiotic agents; Z88.4 Allergy status to anesthetic agent; Z90.79 Acquired absence of other genital organ(s); Z92.29 Personal history of other drug therapy; Z92.3 Personal history of irradiation ==

== ENCOUNTER → 2025-06-07 | Outpatient (CLI) | payer MEDICARE, OTHER | LOC: M WUC 11:19 | PROVIDERS: ATTEND Internal Medicine | DX: M54.50 Low back pain, unspecified (principal) ==

== ENCOUNTER → 2025-07-06 | Outpatient (CLI) | payer MEDICARE, OTHER | LOC: M WUC 14:48 | PROVIDERS: ATTEND Nurse Practitioner Family | DX: C61 Malignant neoplasm of prostate (principal) ==

== ENCOUNTER → 2025-09-06 | Outpatient (REF) | payer MEDICARE, OTHER ==
[2025-09-06 18:24] LABS: APPEARANCE, URINE CLEAR (CLEAR); BACTERIA, URINE AUTO NEGATIVE (NEGATIVE); BILIRUBIN, URINE AUTO NEGATIVE (NEGATIVE); BLOOD, URINE BLOOD NEGATIVE (NEGATIVE); GLUCOSE, URINE (UA) AUTO 3+ mg/dL (NEGATIVE); KETONE, URINE AUTO NEGATIVE (NEGATIVE); LEUKOCYTE ESTERASE, URINE AUTO NEGATIVE (NEGATIVE); MUCUS, URINE SMALL (NEGATIVE); NITRITE, URINE AUTO NEGATIVE (NEGATIVE); PROTEIN, URINE AUTO NEGATIVE (NEGATIVE); RBC, URINE AUTO 1 /HPF (0-3); SPECIFIC GRAVITY URINE AUTO 1.029 (1.002-1.035); SQUAMOUS EPITHELIAL CELL UR AU 0 /HPF (0-6); UROBILINOGEN, URINE AUTO 0.2 mg/dL (0.0-2.0); WBC, URINE AUTO 0 /HPF (0-3)
== END ==
LOC: M LABWUC 17:13
PROVIDERS: ATTEND Student in an Organized Health Care Education/Training Program
DX: N32.81 Overactive bladder (principal); Z79.899 Other long term (current) drug therapy